=== PATIENT | female | born 1985 | race Caucasian/White ===

== ENCOUNTER 2020-07-22 16:12 | Emergency (ER) | payer OTHER ==
[~2020-07-22] VITALS: Ht 162.6 cm; Wt 70.5 kg
[2020-07-22] MEDS ORDERED: DULO20CA27 PO (16:23)
[2020-07-22 16:55] VITALS: BP 123/83
== END 2020-07-22 18:20 | disposition home or self-care (01) ==
LOC: EMS 16:12
DX: J02.9 Acute pharyngitis, unspecified (principal); M54.9 Dorsalgia, unspecified
CPT/HCPCS: 87430; 99283

== ENCOUNTER 2024-09-07 23:07 | Inpatient (IN) | payer MEDICAID, OTHER ==
[~2024-09-07] VITALS: Ht 162.6 cm; Wt 75.7 kg
[~2024-09-07 23:07] MED LIST: DULO20CA70 PO
[2024-09-07] MEDS: DiphenhydrAMINE HCL 50 MG/ML VIAL IM ONE (23:29)
[2024-09-07] MEDS: LORazepam 2 MG/ML VIAL IM ONE (23:29)
[2024-09-07] MEDS: HALOPERIDOL LACTATE 5 MG/ML VIAL IM ONE (23:29)
[2024-09-07 23:58] VITALS: O2SAT 96
[2024-09-08 00:20] LABS: COVID AG,FIA SOURCE NASAL SWAB
[2024-09-08 00:45] LABS: SARS-COV2 (COVID) ANTIGEN,FIA Negative (Negative)
[2024-09-08 01:14] LABS: BASOPHILS % (AUTO) 1.1 % (0.0-2.0); EOSINOPHILS % (AUTO) 4.5 % (1.0-6.0); HEMATOCRIT 35.5 % (36-46); HEMOGLOBIN 11.8 g/dL (12.0-16.0); LYMPHOCYTES # (AUTO) 2.1 K/uL (1.0-4.8); LYMPHOCYTES % (AUTO) 39.3 % (22.0-44.0); MEAN CORPUSCULAR HEMOGLOBIN 28.6 pg (26.0-34.0); MEAN CORPUSCULAR HGB CONC 33.2 G/dL (31.0-37.0); MEAN CORPUSCULAR VOLUME 86 fL (80-100); MONOCYTES # (AUTO) 0.3 K/uL (0.1-1.0); MONOCYTES % (AUTO) 5.1 % (2.0-9.0); NEUTROPHILS # (AUTO) 2.7 K/uL (1.8-7.7); PLATELET COUNT (AUTO) 337 K/uL (150-450); RED BLOOD CELL COUNT(AUTO) 4.12 MIL/uL (4.00-5.20); RED CELL DISTRIBUTION WIDTH 13.9 % (11.5-14.5); WHITE BLOOD COUNT (AUTO) 5.3 K/uL (4.5-11.0)
[2024-09-08 01:21] LABS: CREATININE 1.14 mg/dL (0.60-1.30); POTASSIUM 3.6 mmol/L (3.5-5.1)
[2024-09-08 01:22] LABS: CALCIUM, TOTAL 8.4 mg/dL (8.8-10.5)
[2024-09-08 05:12] VITALS: BP 111/68; RESP 18; O2SAT 96
[2024-09-08] MEDS ORDERED: OLAN10TA74 PO (10:30)
[2024-09-08] MEDS ORDERED: DULO60CA98 PO (10:30)
[2024-09-08] MEDS ORDERED: MAGNESIUM HYDROXIDE SUSPENSION 30 ML UDCUP PO PRN (10:45)
[2024-09-08] MEDS ORDERED: ACETAMINOPHEN 325 MG TABLET PO PRN (10:45)
[2024-09-08] MEDS ORDERED: ONDANSETRON 4 MG TABLET PO PRN (10:45)
[2024-09-08] MEDS ORDERED: GuaiFENesin/D-METHORPHAN [SUGAR-FREE] 200-20MG/10 ML SYRUP UDCUP PO PRN (10:45)
[2024-09-08] MEDS ORDERED: ALBUTEROL SULFATE HFA 90 MCG/PUFF 8 GM INHALER IH PRN (10:45)
[2024-09-08] MEDS ORDERED: CloNIDine HCL 0.1 MG TABLET PO PRN (10:45)
[2024-09-08] MEDS ORDERED: LOPERAMIDE HCL 2 MG CAPSULE PO PRN (10:45)
[2024-09-08] MEDS ORDERED: DOCUSATE SODIUM 100 MG CAPSULE PO PRN (10:45)
[2024-09-08] MEDS ORDERED: MAG HYDROX/ALUMINUM HYD/SIMETH ES 30 ML SUSPENSION UDCUP PO PRN (10:45)
[2024-09-08] MEDS ORDERED: PETROLATUM,WHITE 28 GM JELLY TP PRN (10:45)
[2024-09-08] MEDS: LORazepam 2 MG TABLET PO PRN (12:27)
[2024-09-08] MEDS: DULoxetine HCL 60 MG CAPSULE PO SCH (12:27)
[2024-09-08] MEDS: HALOPERIDOL 5 MG TABLET PO PRN (12:28)
[2024-09-08 12:58] VITALS: BP 100/60; PULSE 82; RESP 19; TEMP 98; O2SAT 97
[2024-09-08] MEDS: BENZOCAINE 10% 7 GM GEL TP PRN (14:35)
[2024-09-08 20:00] VITALS: BP 115/64; PULSE 76; RESP 16; TEMP 98; O2SAT 97
[2024-09-08] MEDS: OLANZapine 10 MG TABLET PO SCH (20:22)
[2024-09-09 08:16] VITALS: BP 107/71; PULSE 60; RESP 16; TEMP 97.9; O2SAT 97
[2024-09-09 08:51] VITALS: RESP 18
[2024-09-09] MEDS: IBUPROFEN 400 MG TABLET PO PRN (08:51)
[2024-09-09 08:57] LABS: HEMOGLOBIN A1C 5.1 % (3.8-5.6)
[2024-09-09 09:26] LABS: CHOL/HDL RATIO 3.7 (3.9-5.7); THYROID STIMULATING HORMONE 1.77 uIU/mL (0.36-3.74)
[2024-09-09 09:51] VITALS: RESP 16
[2024-09-09 20:06] VITALS: BP 110/70; PULSE 69; RESP 16; TEMP 97.7; O2SAT 97
[2024-09-10] MEDS: DENTURE ADHESIVE 68 GM CREAM DT PRN (06:43)
[2024-09-10 08:27] VITALS: BP 122/69; PULSE 86; RESP 16; TEMP 98.2; O2SAT 99
[2024-09-10 20:58] VITALS: BP 129/84; PULSE 76; RESP 16; TEMP 97.3; O2SAT 97
[2024-09-10] MEDS: ZOLPIDEM TARTRATE 10 MG TABLET PO PRN (21:14)
[2024-09-10] MEDS: NICOTINE 14 MG/24 HOUR PATCH TD PRN (21:20)
[2024-09-11 08:09] VITALS: BP 121/79; PULSE 78; RESP 16; TEMP 97.9; O2SAT 96
[2024-09-11] MEDS: LIDOCAINE 5% TRANSDERMAL PATCH TD PRN (08:24)
[2024-09-11 20:09] VITALS: BP 128/82; PULSE 82; RESP 16; TEMP 98.5; O2SAT 95
[2024-09-12 08:17] VITALS: BP 124/94; PULSE 73; RESP 16; TEMP 98.2; O2SAT 96
[2024-09-12 09:38] LABS: APPEARANCE,URINE CLEAR (CLEAR); BILIRUBIN,URINE NEGATIVE (NEGATIVE); COLOR,URINE LIGHT YELLOW (YELLOW); GLUCOSE, URINE (UA) NEGATIVE (NEGATIVE); KETONES,URINE NEGATIVE (NEGATIVE); LEUKOCYTE ESTERASE ,URINE LARGE (NEGATIVE); NITRATE,URINE NEGATIVE (NEGATIVE); OCCULT BLOOD,URINE NEGATIVE (NEGATIVE); PH,URINE 6.5 (5.0-8.0); PH,URINE DRUG SCREEN 6.5 (5.0-8.0); PROTEIN,URINE NEGATIVE (NEGATIVE); UROBILINOGEN,URINE <=1.0 mg/dL (<=1.0)
[2024-09-12 09:44] LABS: ALCOHOL, URINE DRUG SCREEN NEGATIVE (NEGATIVE); AMPHET/METH SCREEN,URINE NEGATIVE (NEGATIVE); BARBITURATE SCREEN, URINE NEGATIVE (NEGATIVE); BENZODIAZEPINES SCREEN,URINE NEGATIVE (NEGATIVE); CANNABINOID SCREEN,URINE NEGATIVE (NEGATIVE); COCAINE SCREEN,URINE NEGATIVE (NEGATIVE); METHADONE SCREEN, URINE NEGATIVE (NEGATIVE); OPIATE SCREEN,URINE NEGATIVE (NEGATIVE); PHENCYCLIDINE SCREEN,URINE NEGATIVE (NEGATIVE)
[2024-09-12 09:51] LABS: BACTERIA,URINE Few /HPF (None Seen); RBC,URINE 0-2 /HPF (0-2)
[2024-09-12 09:52] LABS: RENAL EPITHELIAL CELLS,URINE Moderate /LPF (None Seen); SQUAMOUS EPITHELIAL CELL,UR Moderate /LPF (None Seen)
[2024-09-12] MEDS: CEPHALEXIN MONOHYDRATE 500 MG CAPSULE PO SCH (13:00)
[2024-09-12 20:23] VITALS: BP 116/61; PULSE 80; RESP 16; TEMP 97.9; O2SAT 94
[2024-09-13 09:00] VITALS: BP 114/68; PULSE 82; RESP 16; TEMP 97.2; O2SAT 97
[2024-09-13] MEDS ORDERED: CEPH-558 PO (10:33)
[2024-09-13] MEDS ORDERED: OLAN10TA74 PO (14:28)
[2024-09-13] MEDS ORDERED: DULO60CA45 PO (14:28)
== END 2024-09-13 12:30 | disposition left against medical advice (07) | DRG 750 ==
LOC: EMS 23:07 → B3A 09-08 04:18
PROVIDERS: ADMIT Psychiatry & Neurology Psychiatry; ATTEND Psychiatry & Neurology Psychiatry
PROC: GZHZZZZ Group Psychotherapy (ICD-10-PCS; principal; 2024-09-08)
PROC: GZ52ZZZ Individual Psychotherapy, Cognitive (ICD-10-PCS; 2024-09-08)
DX: F25.1 Schizoaffective disorder, depressive type (principal); R45.851 Suicidal ideations; D64.9 Anemia, unspecified; F10.20 Alcohol dependence, uncomplicated; Z20.822 Contact with and (suspected) exposure to COVID-19; Z78.1 Physical restraint status; F41.0 Panic disorder [episodic paroxysmal anxiety]; G47.00 Insomnia, unspecified; Y90.6 Blood alcohol level of 120-199 mg/100 ml; Z53.29 Procedure and treatment not carried out because of patient's decision for other reasons; Z79.899 Other long term (current) drug therapy
CPT/HCPCS: 80048; 80061; 80307; 81001; 83036; 84443; 84703; 85025; 87086; 87147; G0480; J1200; J1630; J2060

== ENCOUNTER 2024-09-12 12:40 | Emergency (ER) | payer MEDICAID, OTHER ==
[~2024-09-12] VITALS: Ht 162.6 cm; Wt 76.0 kg
[~2024-09-12 12:40] MED LIST changes: -DULO20CA70 PO; +DULO60CA98 PO; +OLAN10TA74 PO
[2024-09-12 14:04] VITALS: BP 148/74; PULSE 90; RESP 18; TEMP 98.6; O2SAT 98
[2024-09-12] MEDS: LIDOCAINE 5% TRANSDERMAL PATCH TD ONE (14:36)
[2024-09-12] MEDS: METHOCARBAMOL 500 MG TABLET PO ONE (14:36)
[2024-09-12] MEDS: ACETAMINOPHEN 500 MG TABLET PO ONE (14:36)
[2024-09-12 15:13] LABS: APPEARANCE,URINE CLEAR (CLEAR); BILIRUBIN,URINE NEGATIVE (NEGATIVE); COLOR,URINE LIGHT YELLOW (YELLOW); GLUCOSE, URINE (UA) NEGATIVE (NEGATIVE); KETONES,URINE NEGATIVE (NEGATIVE); LEUKOCYTE ESTERASE ,URINE LARGE (NEGATIVE); NITRATE,URINE NEGATIVE (NEGATIVE); OCCULT BLOOD,URINE NEGATIVE (NEGATIVE); PROTEIN,URINE NEGATIVE (NEGATIVE); UROBILINOGEN,URINE <=1.0 mg/dL (<=1.0)
[2024-09-12 15:48] LABS: BACTERIA,URINE Few /HPF (None Seen); RBC,URINE 0-2 /HPF (0-2); RENAL EPITHELIAL CELLS,URINE Few /LPF (None Seen); SQUAMOUS EPITHELIAL CELL,UR Few /LPF (None Seen)
[2024-09-13] MEDS ORDERED: CEPH-558 PO (10:33)
[2024-09-13] MEDS ORDERED: DULO60CA45 PO (14:28)
[2024-09-13] MEDS ORDERED: OLAN10TA74 PO (14:28)
== END 2024-09-12 17:29 ==
LOC: EMS 12:48
DX: R04.0 Epistaxis (principal); G89.29 Other chronic pain; M54.9 Dorsalgia, unspecified; F32.A Depression, unspecified; Z79.899 Other long term (current) drug therapy
CPT/HCPCS: 81001; 87086; 87147; 99284; Z7502; Z7610